=== PATIENT | female | born 1970 | race Caucasian/White ===

== ENCOUNTER 2018-04-18 06:29 | Day surgery (SDC) | payer OTHER ==
[2018-04-11 11:24] LABS: HEMATOCRIT 42.5 % (36.0-47.0); HEMOGLOBIN 14.7 g/dL (12.0-15.5); MEAN CORPUSCULAR HEMOGLOBIN 30.5 pg (27.0-33.4); MEAN CORPUSCULAR HGB CONC 34.6 g/dL (32.0-36.0); MEAN CORPUSCULAR VOLUME 88 fl (80-97); PLATELET COUNT 277 10^3/uL (150-450); RED BLOOD COUNT 4.83 10^6/uL (3.72-5.28); RED CELL DISTRIBUTION WIDTH 13.3 % (11.5-14.0); WHITE BLOOD COUNT 4.3 10^3/uL (4.0-10.5)
[2018-04-11 11:36] LABS: AMORPHOUS SEDIMENT,URINE TRACE /HPF; APPEARANCE,URINE CLOUDY; BILIRUBIN,URINE NEGATIVE (NEGATIVE); COLOR,URINE YELLOW; GLUCOSE, URINE NEGATIVE (NEGATIVE); KETONES,URINE NEGATIVE (NEGATIVE); LEUKOCYTE ESTERASE,URINE NEGATIVE (NEGATIVE); NITRITE,URINE NEGATIVE (NEGATIVE); PROTEIN,URINE NEGATIVE (NEGATIVE); URINE SPECIFIC GRAVITY 1.019
[2018-04-11 11:42] LABS: ANION GAP 9 (5-19); BLOOD UREA NITROGEN 13 mg/dL (7-20); CALCIUM 9.1 mg/dL (8.4-10.2); CARBON DIOXIDE 30 mmol/L (22-30); CHLORIDE 103 mmol/L (98-107); GLUCOSE 86 mg/dL (75-110); POTASSIUM 4.4 mmol/L (3.6-5.0); SODIUM 142.3 mmol/L (137-145)
--- NOTE | 2018-04-11 12:29 | RADIOLOGY REPORT (SQ) ---
EXAM DESCRIPTION: CHEST PA/LATERAL COMPLETED DATE/TIME: 04/11/2018 10:32 am REASON FOR STUDY: PRE-OP COMPARISON: None. EXAM PARAMETERS: NUMBER OF VIEWS: two views TECHNIQUE: Digital Frontal and Lateral radiographic views of the chest acquired. RADIATION DOSE: NA LIMITATIONS: none FINDINGS: LUNGS AND PLEURA: No opacities, masses or pneumothorax. No pleural effusion. MEDIASTINUM AND HILAR STRUCTURES: No masses or contour abnormalities. HEART AND VASCULAR STRUCTURES: Heart normal size. No evidence for failure. BONES: No acute findings. HARDWARE: None in the chest. OTHER: No other significant finding. IMPRESSION: NO SIGNIFICANT RADIOGRAPHIC FINDING IN THE CHEST. TECHNICAL DOCUMENTATION: JOB ID: [id number] [employer]- All Rights Reserved Reading location - IP/workstation name: [email or web address]
--- NOTE | 2018-04-11 22:07 | EKG REPORT ---
SEVERITY:- NORMAL ECG - SINUS RHYTHM : Confirmed by: Radha Lorenzo 11-Apr-2018 22:06:58
[~2018-04-18 06:29] MED LIST: ACETAMINOPHEN 1,000 MG/100 ML RTUPB IV ONE; BUPIVACAINE HCL 0.5 % INJ/PF 30 ML SDV ONE; CEFAZOLIN 2 GM/D5W RTU 2 GM/50 ML RTUPB IV PRN; DEXAMETHASONE SOD PHOSPHATE INJ 4 MG/1 ML VIAL ONE; FENTANYL CITRATE INJ/PF 100 MCG/2 ML AMPUL ONE; LACTATED RINGERS 1000 ML IV PRN; LIDOCAINE 0.5% INJ-PF (5 MG/ML) 50 ML SDV SUBCUT PRN; LIDOCAINE 1.5%/EPINEPHRINE INJ 5 ML AMP ONE; LIDOCAINE 2% INJ-PF (20 MG/ML) 10 ML AMPUL ONE; MIDAZOLAM 2 MG/2 ML INJ ONE; ONDANSETRON HCL INJ/PF 4 MG/2 ML SDV ONE; PROPOFOL INJ 200 MG/20 ML VIAL IV ONE
[2018-04-18] MEDS ORDERED: FAMOTIDINE INJ/PF 20 MG/2 ML SDV IV ONE (07:33)
[2018-04-18] MEDS ORDERED: SCOPOLAMINE HYDROBROMIDE 1.5 MG PATCH.TD72 ONE (07:33)
[2018-04-18] MEDS ORDERED: DEXAMETHASONE SOD PHOSPHATE INJ 4 MG/1 ML VIAL ONE (07:33)
[2018-04-18] MEDS ORDERED: MEPERIDINE HCL/PF INJ 25 MG/1 ML DISP.SYRIN IV PRN (08:18)
[2018-04-18] MEDS ORDERED: FENTANYL CITRATE INJ/PF 100 MCG/2 ML AMPUL IV PRN ×3 (08:18)
[2018-04-18] MEDS ORDERED: DIPHENHYDRAMINE HCL 50 MG/ML VIAL IV PRN (08:18)
[2018-04-18] MEDS ORDERED: PROMETHAZINE HCL INJ 25 MG/1 ML VIAL IV PRN ×2 (08:18)
[2018-04-18] MEDS ORDERED: ONDANSETRON HCL INJ/PF 4 MG/2 ML SDV IV PRN ×2 (08:18→09:38)
[2018-04-18] MEDS ORDERED: MORPHINE SULFATE 10 MG/ML INJ IV PRN (08:18)
[2018-04-18] MEDS ORDERED: RINGERS SOLUTION,LACTATED 500 ML IV ONE (09:00)
--- NOTE | 2018-04-18 09:31 | RADIOLOGY REPORT (SQ) ---
EXAM DESCRIPTION: NO CHG FLUORO; WRIST RIGHT 2 VIEWS COMPLETED DATE/TIME: 04/18/2018 9:18 am REASON FOR STUDY: RT WRIST ARTHROPLASTY/ BONE EXCISION ASST W FLUORO IN OR M18.11 UNIL PRIMARY OST EOARTH OF FIRST CARPOMETACARP JOINT, COMPARISON: None. FLUOROSCOPY TIME: 9 seconds 2 images saved to PACS. TECHNIQUE: Intra-operative images acquired during surgical procedure to evaluate progress. NUMBER OF IMAGES: 2 LIMITATIONS: None. FINDINGS: Selected fluoroscopic images of the right hand obtained in the operating room. IMPRESSION: IMAGE(S) OBTAINED DURING PROCEDURE. COMMENT: Quality ID 145: Final reports for procedures using fluoroscopy that document radiation exp osure indices, or exposure time and number of fluorographic images (if radiation exposure indices are not available) Please consult full operative report of the attending physician for description of the procedure. TECHNICAL DOCUMENTATION: JOB ID: [id number] [employer]- All Rights Reserved Reading location - IP/workstation name: [email or web address]
--- NOTE | 2018-04-18 09:31 | RADIOLOGY REPORT (SQ) ---
EXAM DESCRIPTION: NO CHG FLUORO; WRIST RIGHT 2 VIEWS COMPLETED DATE/TIME: 04/18/2018 9:18 am REASON FOR STUDY: RT WRIST ARTHROPLASTY/ BONE EXCISION ASST W FLUORO IN OR M18.11 UNIL PRIMARY OST EOARTH OF FIRST CARPOMETACARP JOINT, COMPARISON: None. FLUOROSCOPY TIME: 9 seconds 2 images saved to PACS. TECHNIQUE: Intra-operative images acquired during surgical procedure to evaluate progress. NUMBER OF IMAGES: 2 LIMITATIONS: None. FINDINGS: Selected fluoroscopic images of the right hand obtained in the operating room. IMPRESSION: IMAGE(S) OBTAINED DURING PROCEDURE. COMMENT: Quality ID 145: Final reports for procedures using fluoroscopy that document radiation exp osure indices, or exposure time and number of fluorographic images (if radiation exposure indices are not available) Please consult full operative report of the attending physician for description of the procedure. TECHNICAL DOCUMENTATION: JOB ID: [id number] [employer]- All Rights Reserved Reading location - IP/workstation name: [facility]
[2018-04-18] MEDS: FENTANYL CITRATE INJ/PF 100 MCG/2 ML AMPUL ONE ×2 (09:35→09:40)
[2018-04-18] MEDS ORDERED: PROPOFOL INJ 200 MG/20 ML VIAL IV ONE (09:37)
[2018-04-18] MEDS ORDERED: HYDROMORPHONE HCL INJ/PF 2 MG/ML AMPULE IV PRN (09:38)
[2018-04-18] MEDS ORDERED: OXYCODONE-ACETAMINOPHEN 5-325 MG TABLET PO PRN (09:38)
--- NOTE | 2018-04-18 09:39 | Operative Report ---
Operative Report DATE OF SURGERY: 04/18/18 PREOPERATIVE DIAGNOSIS: Right thumb CMC arthritis POSTOPERATIVE DIAGNOSIS: Same OPERATION: Right thumb CMC arthroplasty with trapezial excision ligament reconstruction utilizing FCR autograft SURGEON: SAGE JUNG ANESTHESIA: GA COMPLICATIONS: None ESTIMATED BLOOD LOSS: Minimal PROCEDURE: Indication for above procedure: 48-year-old female with long-standing history of right thumb CMC arthritis. We attempted conservative measures including bracing and injections without resolution of patient's symptoms. At that point we discussed treatment options including continued conservative management versus operative intervention. After discussing risks and benefits of both joint decision was made to proceed with operative treatment. Risks and benefits were explained patient verbalized understanding consented for the procedure. Procedure In Detail: Patient was seen and evaluated in the preoperative holding area. The RIGHT upper extremity was initialized and marked. Patient received 2g of Ancef IV for bacterial prophylaxis. Patient was taken back to the operative room where transferred to the operative table and placed under general anesthesia. Once they were adequately anesthetized and a nonsterile tourniquet was placed on the upper extremity. A surgical team debriefing was performed ensuring all instrumentation was available, the surgical procedure was discussed with possible concerns reviewed. The upper extremity was prepped with chlorhexidine and alcohol and draped in a sterile fashion. A timeout was done identifying correct patient, procedure and extremity everyone in attendance agree with this and verbalized no concerns. The extremity was exsanguinated the tourniquet was inflated to 200 mmHg. A longitudinal skin incision was made in line with the first dorsal compartment. I then meticulously dissected down to the interval of the APL and EPB identifying the superficial radial nerve branches which were retracted. I then identified the radial artery which was protected throughout the entirety of the case with a [place] elevator. A T-shaped capsulotomy was made at the CMC joint of the thumb. A freer elevator was used to uriel out the CMC joint, fluoroscopy confirmed the thumb cmc joint placement. The capsule was released off of the trapezium circumferentially. The FCR insertion volarly was protected. Using a rongeur the trapezium was excised as one unit. I then removed any residual loose bodies and bone fragments. I then inspected the STT joint. There was no advanced degenerative changes of the STT joint. I then turned my attention to harvesting the FCR tendon. The FCR was identified and 2 transverse incisions were made. The entire FCR tendon was harvested. The tendon was then retrieved from the CMC joint of the thumb. The base of the thumb metacarpal was rongeured to allow for cancellous tendon healing. I tenolysed the FCR up to its insertion at the second metacarpal. Using a rongeur the 1st metacarpal base osteophytes were removed. Bone tunnels were created with the use of #1 PDS suture in a horizontal mattress fashion while my bilingual administrative assistant held distraction at the thumb CMC joint. Once this was complete, optimal stability of the CMC joint was achieved without evidence of subsidence. I fixated the remaining FCR tendon to the FCR tendon that remained attached the to second metacarpal with 3-0 Vicryl to provide interposition. Fluoroscopy was then obtained which demonstrated good stability of the CMC arthroplasty without evidence of subsidence at rest or with stress. The wound was then copiously irrigated with normal saline. A peripheral vasculature is carefully coagulated with bipolar cautery The capsule was closed with interrupted 3-0 vicryl. Superficial radial nerve was once again inspected and protected during skin closure. Skin was closed with 4-0 Monocryl subcuticular suture reinforced with Dermabond and Steri-Strips.. The patient was placed in a thumb spica splint. Sponge counts, instrument counts and needle counts were correct. 20 mL of 0.5 marcaine was injected for postoperative pain control. Patient was extubated and transferred to the operative stretcher. There was no intraoperative complications patient tolerated procedure well with stable to PACU. Postoperative plan: Patient will continue the splint for 2 weeks. Patient will then be transitioned to a cast for an additional 2 weeks. They will then begin occupational therapy at 4 weeks and will be fitted for a thermoplastic splint at that time.
--- NOTE | 2018-04-18 09:39 | Discharge Summary ---
Discharge Summary (SDC) - Discharge Final Diagnosis: Right thumb CMC arthritis Date of Surgery: 04/18/18 Discharge Date: 04/18/18 Condition: Good Treatment or Instructions: Schedule Follow Up w/ Dr. Allan Wills @ [facility] for Surgery to be seen in 10-14 days or as scheduled [place]: [place]: [place]: Ice and elevate Keep splint clean/dry/intact. If your fingers become numb please unwrap the Dilan wrap but leave the splint in place, if the sensation does not return within 30 minutes please return to the emergency department. May begin finger range of motion attempting to make full fist. You may also use acetaminophen (Tylenol) 1000 mg every 4-6 hours as needed for pain or fever. Please be aware that many medications contain acetaminophen, do not exceed a total of 1000 mg of acetaminophen every 6 hours. Stool softener of choice when on pain medication. Prescriptions: Oxycodone HCl/Acetaminophen [Percocet 7.5-325 mg Tablet] 1 each PO Q6 PRN #30 tablet PRN Reason: Referrals: CINTHYA RANGEL, METAL MACHINE OPERATOR-C [Primary Care Provider] - Respiratory Treatments at Home: Deep Breathing/Coughing, Incentive Spirometer Discharge Activity: No Lifting Over 10 Pounds, No Lifting/Push/Pulling Report the Following to Your Physician Immediately: Fever over 101 Degrees, Unusual Bleeding, Redness, Swelling, Warmth
[2018-04-18] MEDS: HYDROMORPHONE HCL INJ/PF 2 MG/ML AMPULE ONE ×4 (09:45→10:15)
[2018-04-18] MEDS ORDERED: ROPIVACAINE HCL 0.5% INJ/PF (5 MG/1 ML) 30 ML SDV ONE (10:35)
[2018-04-18] MEDS ORDERED: LIDOCAINE 2% INJ (20 MG/ML) 20 ML MDV ONE (10:35)
[2018-04-18] MEDS ORDERED: LIDOCAINE 2%/EPINEPHRINE INJ 20 ML VIAL ONE (10:35)
[2018-04-18 14:02] VITALS: BP 117/65
== END 2018-04-18 12:55 | disposition home or self-care (01) ==
LOC: OROUT 06:29
PROVIDERS: ATTEND Orthopaedic Surgery
DX: M18.0 Bilateral primary osteoarthritis of first carpometacarpal joints (principal); F43.10 Post-traumatic stress disorder, unspecified; Z88.8 Allergy status to other drugs, medicaments and biological substances; Z79.899 Other long term (current) drug therapy; Z87.891 Personal history of nicotine dependence
CPT/HCPCS: 93005; 36415; 85027; 81025; 80048; 81001; 71046; 73100; 93010; 25447; 20924; J2795; J2250; J3490 ×4; J1100; J3010; J1170; J2405; J2704; S0028; J0690; J0131; 01830

== ENCOUNTER 2018-10-24 05:37 | Day surgery (SDC) | payer OTHER ==
[2018-10-17 12:08] LABS: HEMATOCRIT 40.9 % (36.0-47.0); HEMOGLOBIN 14.5 g/dL (12.0-15.5); MEAN CORPUSCULAR HEMOGLOBIN 31.1 pg (27.0-33.4); MEAN CORPUSCULAR HGB CONC 35.5 g/dL (32.0-36.0); MEAN CORPUSCULAR VOLUME 88 fl (80-97); PLATELET COUNT 248 10^3/uL (150-450); RED BLOOD COUNT 4.68 10^6/uL (3.72-5.28); RED CELL DISTRIBUTION WIDTH 13.5 % (11.5-14.0); WHITE BLOOD COUNT 4.3 10^3/uL (4.0-10.5)
[2018-10-17 12:11] LABS: AMORPHOUS SEDIMENT,URINE TRACE /HPF; APPEARANCE,URINE SLIGHTLY-CLOUDY; BILIRUBIN,URINE NEGATIVE (NEGATIVE); COLOR,URINE YELLOW; GLUCOSE, URINE NEGATIVE (NEGATIVE); KETONES,URINE NEGATIVE (NEGATIVE); LEUKOCYTE ESTERASE,URINE NEGATIVE (NEGATIVE); NITRITE,URINE NEGATIVE (NEGATIVE); PROTEIN,URINE NEGATIVE (NEGATIVE); URINE SPECIFIC GRAVITY 1.014; UROBILINOGEN,URINE NEGATIVE mg/dL (<2.0)
[2018-10-17 12:39] LABS: ANION GAP 12 (5-19); BLOOD UREA NITROGEN 11 mg/dL (7-20); CALCIUM 9.5 mg/dL (8.4-10.2); CARBON DIOXIDE 31 mmol/L (22-30); CHLORIDE 97 mmol/L (98-107); GLUCOSE 143 mg/dL (75-110); POTASSIUM 4.4 mmol/L (3.6-5.0)
--- NOTE | 2018-10-17 21:24 | EKG REPORT ---
SEVERITY:- NORMAL ECG - SINUS RHYTHM : Confirmed by: Radha Lorenzo 17-Oct-2018 21:23:48
[~2018-10-24 05:37] MED LIST changes: -ACETAMINOPHEN 1,000 MG/100 ML RTUPB IV ONE; -BUPIVACAINE HCL 0.5 % INJ/PF 30 ML SDV ONE; +CEFAZOLIN 2 GM/D5W RTU 2 GM/50 ML RTUPB IV ONE; -DEXAMETHASONE SOD PHOSPHATE INJ 4 MG/1 ML VIAL ONE; -FENTANYL CITRATE INJ/PF 100 MCG/2 ML AMPUL ONE; -LIDOCAINE 1.5%/EPINEPHRINE INJ 5 ML AMP ONE; -LIDOCAINE 2% INJ-PF (20 MG/ML) 10 ML AMPUL ONE; -MIDAZOLAM 2 MG/2 ML INJ ONE; -ONDANSETRON HCL INJ/PF 4 MG/2 ML SDV ONE; -PROPOFOL INJ 200 MG/20 ML VIAL IV ONE
[2018-10-24] MEDS ORDERED: FENTANYL CITRATE INJ/PF 100 MCG/2 ML AMPUL ONE (06:20)
[2018-10-24] MEDS ORDERED: MIDAZOLAM 2 MG/2 ML INJ ONE (06:20)
[2018-10-24] MEDS ORDERED: LIDOCAINE 2% INJ-PF (100 MG/5 ML) SYRINGE ONE (06:20)
[2018-10-24] MEDS ORDERED: ONDANSETRON HCL INJ/PF 4 MG/2 ML SDV ONE (06:21)
[2018-10-24] MEDS ORDERED: PROPOFOL INJ 200 MG/20 ML VIAL IV ONE (06:21)
[2018-10-24] MEDS ORDERED: ACETAMINOPHEN 1,000 MG/100 ML RTUPB IV ONE (06:21)
[2018-10-24] MEDS ORDERED: DEXAMETHASONE SOD PHOSPHATE INJ 4 MG/1 ML VIAL ONE (06:21)
[2018-10-24] MEDS ORDERED: SCOPOLAMINE HYDROBROMIDE 1.5 MG PATCH.TD72 ONE (07:08)
[2018-10-24] MEDS ORDERED: FAMOTIDINE INJ/PF 20 MG/2 ML SDV IV ONE (07:08)
[2018-10-24] MEDS ORDERED: BUPIVACAINE HCL 0.5 % INJ/PF 30 ML SDV ONE (07:13)
[2018-10-24] MEDS ORDERED: ONDANSETRON HCL INJ/PF 4 MG/2 ML SDV IV PRN ×2 (07:46→09:05)
[2018-10-24] MEDS ORDERED: PROMETHAZINE HCL INJ 25 MG/1 ML VIAL IV PRN ×2 (07:46)
[2018-10-24] MEDS ORDERED: MEPERIDINE HCL/PF INJ 25 MG/1 ML DISP.SYRIN IV PRN (07:46)
[2018-10-24] MEDS ORDERED: DIPHENHYDRAMINE HCL 50 MG/ML VIAL IV PRN (07:46)
[2018-10-24] MEDS ORDERED: FENTANYL CITRATE INJ/PF 100 MCG/2 ML AMPUL IV PRN ×3 (07:46)
[2018-10-24] MEDS ORDERED: HYDROMORPHONE HCL INJ/PF 2 MG/ML AMPULE IV PRN (09:05)
--- NOTE | 2018-10-24 09:05 | Discharge Summary ---
Discharge Summary (SDC) - Discharge Final Diagnosis: Left thumb CMC arthritis Date of Surgery: 10/24/18 Discharge Date: 10/24/18 Condition: Good Treatment or Instructions: Schedule Follow Up w/ Dr. Allan Wills @ [facility] for Surgery to be seen in 10-14 days or as scheduled [place]: [place]: [place]: Ice and elevate Keep splint clean/dry/intact. If your fingers become numb please unwrap the Dilan wrap but leave the splint in place, if the sensation does not return within 30 minutes please return to the emergency department. May begin finger range of motion attempting to make full fist. Pain medication as per Pain Management You may also use acetaminophen (Tylenol) 1000 mg every 4-6 hours as needed for pain or fever. Please be aware that many medications contain acetaminophen, do not exceed a total of 1000 mg of acetaminophen every 6 hours. If ibuprofen and acetaminophen are not sufficient for your pain you may take the Percocet/[place]. Please be aware that the Percocet/[place] does contain Tylenol. Stool softener of choice when on pain medication. ORAL NARCOTIC MEDICATION: You have been given a prescription for pain control. This medication is a narcotic. It's best taken with food, as nausea can result if taken on an empty stomach. Don't operate machinery or drive within six hours of taking this medication . Do not combine this medicine with alcohol, or with any medication which can cause sedation (such as cold tablets or sleeping pills) unless you get permission from the physician. Narcotics tend to cause constipation. If possible, drink plenty of fluids and eat a diet high in fiber and fruits. Please be aware that prescription narcotics also have the potential for abuse. People become addicted to these medications because of the general sense of wellbeing that they induce. This feeling along with a significant reduction in tension, anxiety, and aggression provides a stimulating seductive quality to these drugs. Once your pain is under control, we encourage you to discard your unused narcotics. Referrals: TATYANA GOMEZ DO [Primary Care Provider] - Discharge Diet: As Tolerated Respiratory Treatments at Home: Deep Breathing/Coughing Discharge Activity: No Lifting Over 10 Pounds, No Lifting/Push/Pulling Report the Following to Your Physician Immediately: Fever over 101 Degrees, Unusual Bleeding, Redness, Swelling, Warmth, Increased Soreness
[2018-10-24] MEDS ORDERED: LIDOCAINE 2% INJ (20 MG/ML) 20 ML MDV ONE (09:06)
[2018-10-24] MEDS ORDERED: LIDOCAINE 2%/EPINEPHRINE INJ 20 ML VIAL ONE (09:06)
--- NOTE | 2018-10-24 09:06 | Operative Report ---
Operative Report DATE OF SURGERY: 10/24/18 PREOPERATIVE DIAGNOSIS: Left thumb CMC arthritis POSTOPERATIVE DIAGNOSIS: Same OPERATION: Left CMC arthroplasty with tendon interposition, ligament reconstruction utilizing flexor carpi radialis SURGEON: SAGE JUNG ANESTHESIA: GA COMPLICATIONS: None ESTIMATED BLOOD LOSS: Minimal PROCEDURE: Indication for procedure: 48-year-old female with history of bilateral CMC arthrosis. Patient underwent successful right CMC arthroplasty. Attempted conservative measures on the opposite side including injections, bracing and anti-inflammatories without improvement. At that point we discussed treatment options including operative versus nonoperative intervention after discussing risk and benefits patient elected to proceed with operative treatment. procedure In Detail: Patient was seen and evaluated in the preoperative holding area. The LEFT upper extremity was initialized and marked. Patient received 2g of Ancef IV for bacterial prophylaxis. Patient was taken back to the operative room where transferred to the operative table and placed under general anesthesia. Once they were adequately anesthetized and a nonsterile tourniquet was placed on the upper extremity. A surgical team debriefing was performed ensuring all instrumentation was available, the surgical procedure was discussed with possible concerns reviewed. The upper extremity was prepped with chlorhexidine and alcohol and draped in a sterile fashion. A timeout was done identifying correct patient, procedure and extremity everyone in attendance agree with this and verbalized no concerns. The extremity was exsanguinated the tourniquet was inflated to 200 mmHg. A longitudinal skin incision was made in line with the first dorsal compartment. I then meticulously dissected down to the interval of the APL and EPB identifying the superficial radial nerve branches which were retracted. I then identified the radial artery which was protected throughout the entirety of the case with a [place] elevator. A T-shaped capsulotomy was made at the CMC joint of the thumb. A freer elevator was used to uriel out the CMC joint, fluoroscopy confirmed the thumb cmc joint placement. The capsule was released off of the trapezium circumferentially. The FCR insertion volarly was protected. Using a rongeur the trapezium was excised as one unit. I then removed any residual loose bodies and bone fragments. I then inspected the STT joint. There was no advanced degenerative changes of the STT joint. I then turned my attention to harvesting the FCR tendon. The FCR was identified and 2 transverse incisions were made. The entire FCR tendon was harvested. The tendon was then retrieved from the CMC joint of the thumb. The base of the thumb metacarpal was rongeured to allow for cancellous tendon healing. I tenolysed the FCR up to its insertion at the second metacarpal. Using a rongeur the 1st metacarpal base osteophytes were removed. Bone tunnels were created with the use of #1 PDS suture in a horizontal mattress fashion while my assistant surveyor held distraction at the thumb CMC joint. Once this was complete, optimal stability of the CMC joint was achieved without evidence of subsidence. I fixated the remaining FCR tendon to the FCR tendon that remained attached the to second metacarpal with 3-0 Vicryl to provide interposition. Fluoroscopy was then obtained which demonstrated good stability of the CMC arthroplasty without evidence of subsidence at rest or with stress. The wound was then copiously ir rigated with normal saline. A peripheral vasculature is carefully coagulated with bipolar cautery The capsule was closed with interrupted 3-0 vicryl. Superficial radial nerve was once again inspected and protected during skin closure. Skin was closed with 4-0 Monocryl subcuticular suture reinforced with Dermabond and Steri-Strips.. The patient was placed in a thumb spica splint. Sponge counts, instrument counts and needle counts were correct. 20 mL of 0.5 marcaine was injected for postoperative pain control. Patient was extubated and transferred to the operative stretcher. There was no intraoperative complications patient tolerated procedure well with stable to PACU. Postoperative plan: Patient will continue the splint for 2 weeks. Patient will then be transitioned to a cast for an additional 2 weeks. They will then begin occupational therapy at 4 weeks and will be fitted for a thermoplastic splint at that time.
[2018-10-24] MEDS ORDERED: ROPIVACAINE HCL 0.5% INJ/PF (5 MG/1 ML) 30 ML SDV ONE (09:07)
[2018-10-24 11:52] VITALS: BP 115/67
--- NOTE | 2018-10-24 12:17 | RADIOLOGY REPORT (SQ) ---
EXAM DESCRIPTION: WRIST LEFT 3 VIEWS; NO CHG FLUORO COMPLETED DATE/TIME: 10/24/2018 9:25 am; 10/24/2018 9:24 am REASON FOR STUDY: LEFT CARPOMETACARPAL ARTHROPLASTY TRAPEZIUM RESECTION ASST WITH FLUORO IN M18.12 UNIL PRIMARY OSTEOARTH OF FIRST CARPOMETACARP JOINT, COMPARISON: None. FLUOROSCOPY TIME: 12 seconds 4 digital C-arm images saved to PACS. TECHNIQUE: Intra-operative images acquired during surgical procedure to evaluate progress. NUMBER OF IMAGES: 4 digital C-arm images LIMITATIONS: None. FINDINGS: 4 digital C-arm images are submitted during surgical resection of the trapezium bone. Ple ase see the operative report for further details IMPRESSION: Intra procedural imaging and fluoro COMMENT: Quality ID [id number]: Final reports for procedures using fluoroscopy that document radiation exp osure indices, or exposure time and number of fluorographic images (if radiation exposure indices are not available) Please consult full operative report of the attending physician for description of the procedure. TECHNICAL DOCUMENTATION: JOB ID: [id number] [employer]- All Rights Reserved Reading location - IP/workstation name: [email or web address]
--- NOTE | 2018-10-24 12:17 | RADIOLOGY REPORT (SQ) ---
EXAM DESCRIPTION: WRIST LEFT 3 VIEWS; NO CHG FLUORO COMPLETED DATE/TIME: 10/24/2018 9:25 am; 10/24/2018 9:24 am REASON FOR STUDY: LEFT CARPOMETACARPAL ARTHROPLASTY TRAPEZIUM RESECTION ASST WITH FLUORO IN M18.12 UNIL PRIMARY OSTEOARTH OF FIRST CARPOMETACARP JOINT, COMPARISON: None. FLUOROSCOPY TIME: 12 seconds 4 digital C-arm images saved to PACS. TECHNIQUE: Intra-operative images acquired during surgical procedure to evaluate progress. NUMBER OF IMAGES: 4 digital C-arm images LIMITATIONS: None. FINDINGS: 4 digital C-arm images are submitted during surgical resection of the trapezium bone. Ple ase see the operative report for further details IMPRESSION: Intra procedural imaging and fluoro COMMENT: Quality ID [id number]: Final reports for procedures using fluoroscopy that document radiation exp osure indices, or exposure time and number of fluorographic images (if radiation exposure indices are not available) Please consult full operative report of the attending physician for description of the procedure. TECHNICAL DOCUMENTATION: JOB ID: [id number] [employer]- All Rights Reserved Reading location - IP/workstation name: [email or web address]
[2018-10-24] MEDS ORDERED: METOCLOPRAMIDE HCL INJ/PF 10 MG/2 ML SDV ONE (12:31)
== END 2018-10-24 11:05 | disposition home or self-care (01) ==
LOC: OROUT 05:37
PROVIDERS: ATTEND Orthopaedic Surgery
DX: M18.12 Unilateral primary osteoarthritis of first carpometacarpal joint, left hand (principal); Z88.8 Allergy status to other drugs, medicaments and biological substances; Z88.6 Allergy status to analgesic agent; Z79.899 Other long term (current) drug therapy; Z79.1 Long term (current) use of non-steroidal anti-inflammatories (NSAID)
CPT/HCPCS: 93010; 93005; 36415; 85027; 81025; 80048; 81001; 73110; 25447; J2795; J2250; J3490 ×2; J1100; J3010; J2001; J2765; J2405; J2704; S0028; J0690; J0131; 01830